=== PATIENT | female | born 1950 | race Caucasian/White ===

== ENCOUNTER → 2018-01-27 | Outpatient (REF) | payer OTHER ==
[2018-01-27 13:33] LABS: BASO # 0.1 10^3/uL (0.0-0.2); EOS # 0.1 10^3/uL (0.0-0.50); EOS % 1.6 % (0.0-3.0); HEMATOCRIT 44.4 % (36.0-47.0); HEMOGLOBIN 14.3 g/dl (12.0-15.5); IMMATURE GRANULOCYTE % 0.1 % (0-3.0); LYMPH # 2.2 10^3/uL (1.5-4.5); LYMPH % 31.9 % (24.0-44.0); MEAN CORPUSCULAR HEMOGLOBIN 29.6 pg (27.0-33.0); MEAN CORPUSCULAR HGB CONC 32.2 g/dl (32.0-36.5); MEAN CORPUSCULAR VOLUME 91.9 fl (80.0-96.0); MONO # 0.6 10^3/uL (0.0-0.8); MONO % 8.1 % (0.0-5.0); NEUTROPHILS % 57.3 % (36.0-66.0); PLATELET COUNT, AUTOMATED 291 10^3/uL (150-450); RED BLOOD COUNT 4.83 10^6/uL (4.00-5.40); RED CELL DISTRIBUTION WIDTH 12.7 % (11.5-14.5); WHITE BLOOD COUNT 6.9 10^3/uL (4.0-10.0)
[2018-01-27 13:37] LABS: VITAMIN B12 LEVEL 536 PG/ML
[2018-01-27 13:38] LABS: FOLATE 12.2 NG/ML
[2018-01-27 13:48] LABS: DRVV SCREEN 40.7 SEC; ESTIMATED AVERAGE GLUCOSE 117 MG/DL (60-110); HEMOGLOBIN A1c 5.7 %
[2018-01-27 14:00] LABS: PTT LUPUS TYPE ANTICOAG SCREEN 0.9 (0-1.2)
[2018-01-27 14:02] LABS: ALBUMIN 3.7 GM/DL (3.2-5.2); ALKALINE PHOSPHATASE 81 U/L (45-117); ALT/SGPT 22 U/L (12-78); ANION GAP 7 MEQ/L (8-16); AST/SGOT 12 U/L (7-37); BILIRUBIN,TOTAL 0.4 MG/DL (0.2-1.0); BLOOD UREA NITROGEN 20 MG/DL (7-18); CALCIUM LEVEL 8.7 MG/DL (8.8-10.2); CARBON DIOXIDE LEVEL 28 MEQ/L (21-32); CHLORIDE LEVEL 106 MEQ/L (98-107); CREATININE FOR GFR 0.83 MG/DL (0.55-1.30); GLOMERULAR FILTRATION RATE > 60.0 (>45); GLUCOSE, FASTING 74 MG/DL (70-100); POTASSIUM SERUM 4.2 MEQ/L (3.5-5.1); RHEUMATOID FACTOR QUANT < 10.0 IU/ML (<15.0); SODIUM LEVEL 141 MEQ/L (136-145); THYROID STIMULATING HORMONE 0.215 uIU/ML (0.358-3.740); TOTAL PROTEIN 7.8 GM/DL (6.4-8.2)
[2018-01-27 14:19] LABS: ERYTHROCYTE SEDIMENTATION RATE 21 mm/hr (0-30)
[2018-01-29 11:58] LABS: ALBUMIN 4.36 GM/DL (3.29-5.55); ALBUMIN % 55.9 % (55.8-66.1); ALPHA-1-GLOBULINS 0.31 GM/DL (0.17-0.41); ALPHA-2-GLOBULINS 1.02 GM/DL (0.42-0.99); ALPHA-2-GLOBULINS % 13.1 % (7.1-11.8); BETA-1-GLOBULINS 0.43 GM/DL (0.28-0.60); BETA-1-GLOBULINS % 5.5 % (4.7-7.2); BETA-2-GLOBULINS 0.44 GM/DL (0.19-0.55); BETA-2-GLOBULINS % 5.7 % (3.2-6.5); GAMMA GLOBULIN % 15.8 % (11.1-18.8); GAMMA GLOBULINS 1.23 GM/DL (0.65-1.58)
[2018-02-04 00:15] LABS: ANTI DOUBLE STRAND-DNA AB 2 IU/mL (0-9); ANTINUCLEAR ANTIBODIES DIRECT Negative (Negative); COPPER PLASMA 142 ug/dL (72-166); CYTOPLASMIC NEUTROP AB ANCA-C <1:20 titer (Neg:<1:20); LEAD BLOOD ADULT 2 ug/dL (0-19); Lyme Disease IgG/IgM Antibodie <0.91 ISR (0.00-0.90); Lyme Disease IgM Ab Quantitati <0.80 index (0.00-0.79); MERCURY LEVEL None Detected ug/L (0.0-14.9); PERINUCLEAR AB ANCA-P <1:20 titer (Neg:<1:20); SJOGREN'S ANTI SS-A <0.2 AI (0.0-0.9); SJOGREN'S ANTI SS-B <0.2 AI (0.0-0.9); VITAMIN B1 LEVEL WHOLE BLOOD 123.9 nmol/L (66.5-200.0); VITAMIN E(ALPHA TOCOPHEROL) 10.4 mg/L (9.0-29.0); VITAMIN E(GAMMA TOCOPHEROL) 1.7 mg/L (0.5-4.9)
== END ==
LOC: M LABNEURO 10:03
DX: G62.9 Polyneuropathy, unspecified (principal)

== ENCOUNTER → 2021-03-24 | Outpatient (CLI) | payer MEDICARE, OTHER ==
[~2021-03-24] MED LIST: ESTR0.1C5 TOP; LEVO75TA4 PO; LISI-898 PO; LORA-674 PO; OMEP-218 PO; ROSU5TAB5 PO; VITMTA PO
== END ==
LOC: M LABSMTC 09:08
PROVIDERS: ATTEND Anesthesiology
DX: Z01.812 Encounter for preprocedural laboratory examination (principal); Z20.822 Contact with and (suspected) exposure to COVID-19

== ENCOUNTER 2021-03-29 06:05 | Day surgery (SDC) | payer MEDICARE, OTHER ==
[~2021-03-29] VITALS: Ht 160 cm; Wt 75.3 kg
[~2021-03-29 06:05] MED LIST changes: +PHENYLEPHRINE HCL 10 % OPHTH. SOL 5ML OD ONE
[2021-03-29] MEDS ORDERED: LIDOCAINE 1% SDV 5ML VIAL As Ordered ONE (06:35)
[2021-03-29] MEDS ORDERED: MAXITROL OPHTH SUSP 5 ML As Ordered ONE (06:35)
[2021-03-29] MEDS: FLURBIPROFEN 0.03% OPHTH SOLN 2.5 ML OD SCH ×3 (06:36→06:56)
[2021-03-29] MEDS: TETRACAINE 0.5% OPHTH SOLN 4ML OD SCH ×2 (06:36→06:46)
[2021-03-29] MEDS: PHENYLEPHRINE 2.5% OPHTH SOL 2ML OD SCH ×3 (06:36→06:56)
[2021-03-29] MEDS: CYCLOPENTOLATE 1% OPHTH SOLN 2 ML BTL OD SCH ×3 (06:37→06:56)
[2021-03-29] MEDS ORDERED: LR 1,000 ML IV SCH (07:00)
[2021-03-29] MEDS ORDERED: fentaNYL 100 MCG/2 ML INJECTION (J3010) As Ordered ONE (07:03)
[2021-03-29] MEDS ORDERED: MIDAZOLAM INJ 2MG/2ML VIAL (J2250 PER 1MG) As Ordered ONE (07:03)
[2021-03-29] MEDS ORDERED: DUOVISC (0.50ML VISCOAT/0.85ML PROVISC) OPHTH KIT As Ordered ONE (07:13)
[2021-03-29 08:50] VITALS: BP 177/84
--- NOTE | 2021-03-29 16:28 | ROOPDOC ---
[facility] Report Of Operation Report of Operation PREPROCEDURE DIAGNOSES: Cataract right eye. POSTPROCEDURE DIAGNOSES: Same. PROCEDURE PERFORMED: Cataract extraction with intraocular lens implantation right eye. SURGEON: Mk Solis MD BILINGUAL HR GENERALIST: None ANESTHESIA: local with intravenous sedation ESTIMATED BLOOD LOSS: None. COMPLICATIONS: None. SPECIMENS REMOVED: None DESCRIPTION OF PROCEDURE: The patient was brought to the operating room and prepped and draped in the usual sterile fashion and an eyelid speculum was inserted in the right eye. A paracentesis was made and the anterior chamber was inflated with non-preserved lidocaine. This was followed by injection of Viscoat. A groove was made in the temporal clear cornea which was tunneled forward with the crescent blade and the anterior chamber was entered with a 2.75 keratome. The cystotome was used to make an incision in the center of the capsule and a continuous curvilinear capsulorhexis was created. The lens was hydrodissected until it was found to rotate freely within the capsular bag. Phacoemulsification was then used to remove the lens in its entirety. Irrigation and aspiration were used to remove residual cortical material. There was some pupillary constriction at this point. The anterior chamber and capsular bag were reinflated with Provisc and a 23.5 diopter SN60AT lens was injected into the capsular bag using the Norvell injector. The lens was dialed into place using the Sinskey hook. Irrigation and aspiration were used to remove residual viscoelastic. The wound was stromally hydrated until was found to be watertight and the eye was in an appropriate pressure. The eyelid speculum was removed from the eye and Maxitrol drops were placed over the right eye. The patient was transferred to the recovery room in stable condition and will follow up tomorrow. The total CDE was 20.22 MK SOLIS MD Mar 29, 2021 16:28
== END 2021-03-29 08:59 | disposition home or self-care (01) ==
LOC: M SDC 06:05
PROVIDERS: ATTEND Ophthalmology
DX: H25.11 Age-related nuclear cataract, right eye (principal); I10 Essential (primary) hypertension; E03.9 Hypothyroidism, unspecified; K21.9 Gastro-esophageal reflux disease without esophagitis; Z79.899 Other long term (current) drug therapy; Z91.041 Radiographic dye allergy status; Z88.0 Allergy status to penicillin; Z88.1 Allergy status to other antibiotic agents; Z88.5 Allergy status to narcotic agent; Z88.8 Allergy status to other drugs, medicaments and biological substances
CPT/HCPCS: 66984; J2250; J3010; V2632

== ENCOUNTER → 2022-01-11 | Outpatient (CLI) | payer MEDICARE, OTHER ==
[~2022-01-11] MED LIST changes: -LISI-898 PO; +LISI5TAB11 PO; +OMEP-173 PO; -OMEP-218 PO; -PHENYLEPHRINE HCL 10 % OPHTH. SOL 5ML OD ONE
[2022-01-11 17:43] LABS: HEMOGLOBIN A1c 5.2 %
[2022-01-11 17:53] LABS: FREE T4 1.09 NG/DL (0.76-1.46); RHEUMATOID FACTOR QUANT < 10.0 IU/ML (<15.0); TOTAL PROTEIN 7.3 GM/DL (6.4-8.2)
[2022-01-11 18:27] LABS: VITAMIN B12 LEVEL 500 PG/ML
[2022-01-14 13:06] LABS: FOLATE > 24.0 NG/ML
== END ==
LOC: M PLALAB 16:01
PROVIDERS: ATTEND Psychiatry & Neurology Neurology
DX: E11.9 Type 2 diabetes mellitus without complications (principal)

== ENCOUNTER 2024-04-19 06:38 | Day surgery (SDC) | payer MEDICARE, OTHER ==
[~2024-04-19] VITALS: Ht 158.8 cm; Wt 80.3 kg
[~2024-04-19 06:38] MED LIST changes: +GABA-1172 PO; +GNP250TA9 PO; +LORA-1041 PO; -LORA-674 PO; +NS 250 ML IV ONE; +ROSU5TAB40 PO; -ROSU5TAB5 PO; +THERTAB52 PO
[2024-04-19] MEDS ORDERED: fentaNYL 100 MCG/2 ML INJECTION As Ordered ONE (07:10)
[2024-04-19] MEDS ORDERED: propofoL 200 MG/20 ML VIAL As Ordered ONE (07:10)
[2024-04-19] MEDS ORDERED: LIDOCAINE 2% 100MG/5ML SDV (FOR ANES.) As Ordered ONE (07:10)
[2024-04-19 08:12] VITALS: TEMP 96.9
[2024-04-19 08:35] VITALS: BP 110/67; O2SAT 94
== END 2024-04-19 08:36 | disposition home or self-care (01) ==
LOC: M OPP 06:38
PROVIDERS: ATTEND Internal Medicine Gastroenterology
DX: Z12.11 Encounter for screening for malignant neoplasm of colon (principal); Z12.12 Encounter for screening for malignant neoplasm of rectum; K57.30 Diverticulosis of large intestine without perforation or abscess without bleeding; K44.9 Diaphragmatic hernia without obstruction or gangrene; R10.13 Epigastric pain; R12 Heartburn; R07.89 Other chest pain; I10 Essential (primary) hypertension; E03.9 Hypothyroidism, unspecified; E78.00 Pure hypercholesterolemia, unspecified; G62.9 Polyneuropathy, unspecified; Z90.710 Acquired absence of both cervix and uterus; Z79.899 Other long term (current) drug therapy; Z79.890 Hormone replacement therapy; Z90.89 Acquired absence of other organs; Z88.5 Allergy status to narcotic agent; Z88.0 Allergy status to penicillin; Z88.1 Allergy status to other antibiotic agents; Z91.041 Radiographic dye allergy status; Z88.8 Allergy status to other drugs, medicaments and biological substances
CPT/HCPCS: 43235; 45378; J3010

== ENCOUNTER → 2025-06-08 | Outpatient (CLI) | payer MEDICARE, OTHER ==
[~2025-06-08] MED LIST changes: -NS 250 ML IV ONE; -ROSU5TAB40 PO; +ROSU5TAB49 PO
== END ==
LOC: M WUC 15:12
PROVIDERS: ATTEND Internal Medicine
DX: J20.8 Acute bronchitis due to other specified organisms (principal)